=== PATIENT | male | born 1950 | race Caucasian/White ===

== ENCOUNTER 2019-10-21 10:29 | Emergency (ER) | payer MEDICARE ==
[~2019-10-21] VITALS: Ht 187.9 cm; Wt 104.3 kg
[~2019-10-21 10:29] MED LIST: CARDOXIN0.25 MG PO; ROBAXIN500 MG PO; SIMVASTATIN10 MG PO; WARFARIN2 MG PO
[2019-10-21 10:55] LABS: HEMATOCRIT 50.9 % (42.0-52.0); HEMOGLOBIN 16.7 g/dl (14.0-18.0); MEAN CORPUSCULAR HGB 29.2 pg (27.0-31.0); MEAN CORPUSCULAR HGB CONC 32.8 g/dl (33.0-37.0); MEAN PLATELET VOLUME 10.9 fl (9.6-12.3); PLATELET COUNT AUTOMATED 341 10*3/uL (130-400); RED BLOOD COUNT 5.72 10*6/uL (4.50-5.90); RED CELL DISTRI WIDTH 13.6 % (0-14.5); WHITE BLOOD COUNT 14.1 10*3/uL (4.8-10.8)
[2019-10-21 11:15] LABS: BURR CELLS FEW; PLATELET SUFFICIENCY NORMAL (NORMAL); TOTAL CELLS COUNTED 100 #CELLS
[2019-10-21 11:40] LABS: ALBUMIN 3.3 gm/dl (3.1-4.5); CREATININE 1.48 mg/dL (0.70-1.30); POTASSIUM 3.8 mmol/L (3.5-5.1); TOTAL PROTEIN 7.9 gm/dL (6.4-8.2)
[2019-10-21 11:45] LABS: TROPONIN I 0.675 ng/ml (<0.045)
== END 2019-10-21 11:22 | disposition short-term general hospital (02) ==
LOC: ED 10:29
PROVIDERS: Emergency Medicine
DX: I47.2 Ventricular tachycardia (principal); Z88.6 Allergy status to analgesic agent; Z88.2 Allergy status to sulfonamides; Z79.899 Other long term (current) drug therapy; Z79.02 Long term (current) use of antithrombotics/antiplatelets